=== PATIENT | male | born 1970 | race Caucasian/White ===

== ENCOUNTER 2020-09-02 18:40 | Emergency (ER) | payer OTHER, BC ==
[2020-09-02] MEDS ORDERED: ACETAMINOPHEN 325 MG TABLET PO ONE (19:53)
--- NOTE | 2020-09-02 19:57 | ER Document Report ---
ED Head/Face/Scalp Injury - General Chief Complaint: Head Injury Stated Complaint: FALL Time Seen by Provider: 09/02/20 19:43 Mode of Arrival: Ambulatory Information source: Patient, Relative - - HPI Patient complains to provider of: Injury Injury to: Head Notes: Patient here with complaints of headache with head injury. Patient states he was at work pulling something off of a shelf. He states that the strap/band that was holding this object up broke causing him to lose his balance backwards. He believes he may have tripped over the [place] of the [employer] and hit his head. He does not recall the event at all. He was told that he was out for an hour. He states that then his coworkers were able to get him up to a chair but he was in and out of it and confused for an hour after that. EMS was not called. He complains of a severe headache at this time. He is not on blood thinners. He does take a daily aspirin. He denies any blurred or loss of vision. He denies any numbness, tingling, weakness. No chest pain or shortness of breath. No abdominal pain. No nausea, vomiting, diarrhea. Nothing makes his pain better or worse. No other complaints at this time. - Related Data Allergies/Adverse Reactions: Penicillins Allergy (Verified 09/02/20 19:40) Home Medications: LISINIPRIL. ZOLOFT. ASP Past Medical History - Social History Smoking Status: Never Smoker Frequency of alcohol use: Social Drug Abuse: None Family History: Reviewed & Not Pertinent Review of Systems - Review of Systems -: Yes All other systems reviewed and negative Physical Exam - Notes Notes: GENERAL: alert, cooperative, nontoxic, no distress. HEAD: normocephalic, atraumatic EYES: conjunctiva pink without discharge, no external redness or swelling. PERRL, EOM'S INTACT EARS: no external swelling, no external redness. No hemotympanum EM NOSE: atraumatic, no external swelling. No bleeding MOUTH/THROAT: mucous membranes moist and pink, posterior pharynx without erythema, swelling, exudate. No trismus or drooling. NECK: soft, supple, full range of motion, no meningismus. No midline tenderness step-offs or crepitus to palpation of the cervical spine. CHEST: no distress, lungs clear and equal throughout. No wheezing, rales, rhonchi. CARDIAC: regular rate and rhythm, no murmur, normal capillary refill, normal pulses. BACK: full range of motion, no CVA tenderness. No midline tenderness step-offs or crepitus to palpation of the thoracic or lumbar spine. EXTREMITIES: full range of motion of all extremities. No redness, no swelling. NEURO: alert and oriented x 3, no focal deficits, full range of motion of all extremities. Cranial nerves II through XII are grossly intact. Normal sensation bilaterally. Normal strength bilaterally. PYSCH: appropriate mood, affect. Patient is cooperative. SKIN: pink, warm, dry, no rash. Course - Re-evaluation Re-evalutation: 09/02/20 21:32 Patient resting comfortably this time. I have gone over the results with the patient and family. Questions been answered. We will discharge home. Patient is nontoxic-appearing with stable vitals. Here with complaints of head injury. Patient states that he was at work pulling something off a shelf when he lost his balance falling backwards tripping over a forklift and hitting his head on the concrete. He reports that he was unconscious for about an hour. He then states that it took about another hour for him to come completely to according to his workmates. Does complain of a severe headache. Patient has a nonfocal neuro exam. He has no other signs of traumatic injury. CT of cervical spine and CT of the brain are negative for acute findings. Patient will be discharged home with instructions take Tylenol Motrin as needed for pain. Drink plain fluids. Ice to the sore area. Follow-up for worsening pain, numbness, tingling, weakness, persistent vomiting or any further concerns. The patient's emergency department workup and current diagnosis were explained to the patient and or family. Follow-up instructions were provided. Medications if prescribed were discussed. Instructions for when to return to the emergency department including specific worrisome symptoms were discussed with the patient and/or family. - Laboratory Results Critical Laboratory Results Reviewed: No Critical Results - Radiology Results Critical Radiology Results Reviewed: No Critical Results Discharge - Discharge Clinical Impression: Head injury Qualifiers: Encounter type: initial encounter Qualified Code(s): S09.90XA - Unspecified injury of head, initial encounter Condition: Stable Disposition: HOME, SELF-CARE Instructions: Head Injury Precautions ([facility]), Neck Injury (Cervical Strain) ([facility]) Additional Instructions: Take Tylenol Motrin as needed for pain. Apply ice to the sore area. Follow-up for worsening pain, severe headache, persistent vomiting, numbness, tingling, weakness, any further concerns. Referrals: [facility] [Provider Group] - Follow up as needed
--- NOTE | 2020-09-02 21:17 | RADIOLOGY REPORT (SQ) ---
EXAM DESCRIPTION: Site: CT CERVICAL SPINE WITHOUT RP: CT CERVICAL SPINE WITHOUT IV CONTRAST CLINICAL HISTORY: 50 years Male; head injury, extended LOC; TECHNIQUE: Noncontrast cervical spine CT with sagittal and coronal reconstructions. All CT scans at this facility use dose modulation, iterative reconstruction, and/or weight based dosing when appropriate to reduce radiation dose to as low as reasonably achievable. COMPARISON: None FINDINGS: Alignment is anatomic. C5-C6: Osteophytic ridging with moderate left foraminal stenosis. There is no acute fracture of the cervical spine. No epidural hematoma. IMPRESSION: 1. No acute cervical spine fracture or subluxation.
--- NOTE | 2020-09-02 21:19 | RADIOLOGY REPORT (SQ) ---
EXAM DESCRIPTION: CT HEAD WITHOUT IV CONTRAST COMPLETED DATE/TME: 09/02/2020 20:45 CLINICAL HISTORY: 50 years, Male, head injury, extended LOC EXAM DESCRIPTION: CT HEAD WITHOUT CLINICAL HISTORY: head injury, extended LOC COMPARISON: None Available TECHNIQUE: Contiguous axial CT images of the head were obtained. Coronal and sagittal reconstructions were created from the axial data. This exam was performed according to our departmental dose-optimization program, which includes automated exposure control, adjustment of the mA and/or kV according to patient size and/or use of iterative reconstruction technique. FINDINGS: There is no evidence of acute mass, mass effect, midline shift or hemorrhage. The ventricles and extra-axial CSF spaces are unremarkable. The brain parenchyma appears normal for the patient's age. No acute abnormalities of the bones is seen. IMPRESSION: No acute intracranial abnormality.
[2020-09-02 21:53] VITALS: BP 150/90
== END 2020-09-02 21:50 | disposition home or self-care (01) ==
LOC: ER 18:40
DX: S09.90XA Unspecified injury of head, initial encounter (principal); W18.39XA Other fall on same level, initial encounter; Y99.0 Civilian activity done for income or pay; Z88.0 Allergy status to penicillin; Z79.82 Long term (current) use of aspirin
CPT/HCPCS: 70450; 72125; 99284